=== PATIENT | male | born 2000 | race Two or more races ===

== ENCOUNTER 2022-08-17 16:01 | Emergency (ER) | payer OTHER ==
[~2022-08-17] VITALS: Ht 170.2 cm; Wt 59.0 kg
[2022-08-17 16:34] LABS: BASOPHILS % (AUTO) 0.2 % (0.0-2.0); EOSINOPHILS % (AUTO) 0.3 % (0.0-6.0); HEMATOCRIT 46 % (39-51); HEMOGLOBIN 15.3 g/dL (13.5-17.5); LYMPHOCYTES # (AUTO) 1.7 K/uL (0.8-4.8); LYMPHOCYTES % (AUTO) 23.2 % (20.0-44.0); MEAN CORPUSCULAR HGB CONC 33 g/dl (31.0-36.0); MEAN CORPUSCULAR VOLUME 89 fL (80-96); MONOCYTES # (AUTO) 0.3 K/uL (0.1-1.30); MONOCYTES % (AUTO) 4.6 % (2.0-12.0); NEUTROPHILS # (AUTO) 5.2 K/uL (1.8-8.9); NEUTROPHILS % (AUTO) 71.7 % (43.0-81.0); PLATELET COUNT (AUTO) 238 K/uL (150-450); RED BLOOD CELL COUNT(AUTO) 5.21 MIL/uL (4.5-6.0); WHITE BLOOD COUNT (AUTO) 7.2 K/uL (4.3-11.0)
[2022-08-17 16:39] LABS: BILIRUBIN,URINE NEGATIVE (NEGATIVE); COLOR,URINE YELLOW (YELLOW); LEUKOCYTE ESTERASE ,URINE NEGATIVE (NEGATIVE); NITRITE, URINE NEGATIVE (NEGATIVE); PH,URINE 6.5 (5.0-8.0); PROTEIN,URINE NEGATIVE (NEGATIVE); UGLUCOSE NEGATIVE (NEGATIVE); UROBILINOGEN,URINE 0.2 EU/dL (0.2)
[2022-08-17 16:51] LABS: CALCIUM, SERUM 9.2 mg/dL (8.5-10.1); CARBON DIOXIDE 29 mmol/L (21-32); CHLORIDE 107 mmol/L (98-107); GLUCOSE 92 mg/dL (74-106); POTASSIUM 3.9 mmol/L (3.5-5.1); SODIUM SERUM 141 mmol/L (136-145); UREA NITROGEN, BLOOD 14 mg/dL (7-18)
--- NOTE | 2022-08-17 16:52 | NUR ---
HUANG [id number] HOLD EFFECTIVE 1614
[2022-08-17 16:55] LABS: ALANINE AMINOTRANSFERASE 21 U/L (12-78); ALBUMIN 4.2 g/dL (3.4-5.0); ALCOHOL, BLOOD < 3 mg/dL (0-0); ALKALINE PHOSPHATASE 81 U/L (46-116); ASPARTATE AMINOTRANSFERASE 20 U/L (15-37); BILIRUBIN,DIRECT 0.2 mg/dL (0.0-0.2); BILIRUBIN,TOTAL 0.9 mg/dL (0.2-1.0); TOTAL PROTEIN, SERUM 7.3 g/dL (6.4-8.2)
[2022-08-17 16:57] LABS: ACETAMINOPHEN 0 ug/ml (10-30)
--- NOTE | 2022-08-17 21:54 | NUR ---
STEILACOOM CRISIS TEAM PAGED FOR EVAL.
--- NOTE | 2022-08-18 00:08 | NUR ---
WINNIE AT BEDSIDE FOR EVAL.
[2022-08-18] MEDS ORDERED: OLANZAPINE 5 MG TABLET ONE (00:25)
[2022-08-18] MEDS: OLANZAPINE 5 MG TABLET PO ONE (00:48)
--- NOTE | 2022-08-18 09:26 | NUR ---
Transfer info: Accepted By: Libby intake Accepted to: [address] [address] Accepting MD: Paul Felipe Room #: 224-1 Report to: [phone] [facility]
[2022-08-18 12:00] VITALS: BP 131/73
--- NOTE | 2022-08-18 12:14 | NUR ---
[facility] CALLED FOR TRANSPORT ETA [id number]
--- NOTE | 2022-08-18 12:50 | NUR ---
[facility] [address] [facility] EMT here to transport pt to psych facility NO obvious distress/NO acute changes. VSS Cooperative. Pt aware and agrees with plan of care
== END 2022-08-18 13:04 ==
LOC: ER 18:17
DX: R45.851 Suicidal ideations (principal); F32.A Depression, unspecified; S71.111A Laceration without foreign body, right thigh, initial encounter; S41.111A Laceration without foreign body of right upper arm, initial encounter; X78.1XXA Intentional self-harm by knife, initial encounter; Y92.89 Other specified places as the place of occurrence of the external cause
CPT/HCPCS: 99285; 85025; 80048; 80076; 81003; 36415; 87426; 80143; 80320; 80307; J7120; C9803; G0480